=== PATIENT | male | born 1975 | race Caucasian/White ===

== ENCOUNTER → 2025-02-09 | Outpatient (CLI) | payer BC, SELFPAY ==
[2025-02-09 15:35] LABS: Collection Type, Urine Clean Catch; Squamous Epithelial Cell,Urine 0 /hpf (0-5)
[2025-02-09 16:57] LABS: Basophils # (Auto) 0.0 Thou/mm3 (0.0-0.2); Basophils % (Auto) 1 % (0-2.5); Eosinophils # (Auto) 0.1 Thou/mm3 (0.0-0.5); Eosinophils % (Auto) 3 % (0-10); Hematocrit 42.4 % (41.0-53.0); Hemoglobin 14.6 g/dL (13.5-16.0); Immature Granulocytes Auto 0.02 Thou/mm3 (0.00-0.00); Lymphocytes # (Auto) 1.2 Thou/mm3 (1.0-4.8); Lymphocytes % (Auto) 25 % (10-50); Mean Corpuscular HGB Conc 34.4 g/dl (31.0-37.0); Mean Corpuscular Hemoglobin 31.6 pg (25.0-35.0); Mean Corpuscular Volume 92 fL (80-100); Monocytes # (Auto) 0.3 Thou/mm3 (0.0-0.8); Monocytes % (Auto) 6 % (0-12); Neutrophils # (Auto) 3.2 Thou/mm3 (1.8-7.7); Neutrophils % (Auto) 65 % (37-80); Nucleated Red Blood Cell # 0.00 Thou/mm3 (0.00-0.00); Nucleated Red Blood Cell % 0 /100 WBC (0); Platelet Count 240 Thou/mm3 (140-440); RDW Standard Deviation 40.5 fL (35.1-43.9); Red Blood Count 4.62 Miln/mm3 (4.50-5.90); White Blood Count 4.9 Thou/mm3 (3.8-10.6)
[2025-02-09 17:02] LABS: Glucose Estimated Average 94 mg/dL (80-131); Hemoglobin A1C 4.9 % Hgb (4.8-6.0)
[2025-02-09 17:07] LABS: Alanine Aminotransferase 26 U/L (10-49); Albumin, Serum 4.8 gm/dL (3.5-5.0); Alkaline Phosphatase 61 U/L (46-116); Anion Gap 7 (7-16); Aspartate Amino Transferase 29 U/L (0-34); BUN/Creatinine Ratio 9 Ratio (12-20); Blood Urea Nitrogen 9 mg/dL (9-23); Calcium 10.4 mg/dL (8.3-10.6); Calcium (Corrected) 10.4 mg/dL (8.5-10.1); Carbon Dioxide 27.9 mMol/L (20.0-31.0); Cardiac Risk Estimate 5.8 RATIO (4.0-6.7); Chloride 106 mMol/L (98-107); Cholesterol 196 mg/dL (132-200); Creatinine (Component) 1.0 mg/dL (0.6-1.3); Glucose 92 mg/dL (74-106); HDL Cholesterol 34 mg/dL (40-60); LDL Cholesterol,Calculated 142 mg/dL (0-130); Osmolality,Calculated 279 (275-295); Potassium 4.8 mMol/L (3.4-5.1); Prostate Specific Antigen 0.51 ng/mL (0-4.00); Sodium 141 mMol/L (136-145); Triglycerides 102 mg/dL (30-150); Uric Acid 6.5 mg/dL (3.7-9.2); eGFR > 60 See Note
[2025-02-09 17:09] LABS: Albumin/Globulin Ratio 1.8 (1.2-2.2); Bilirubin,Total 1.1 mg/dL (0.3-1.2); Globulin 2.7 gm/dL (2.3-3.5); Thyroid Stimulating Hormone 3.42 uIU/mL (0.55-4.78); Total Protein 7.5 gm/dL (5.7-8.2)
[2025-02-09 17:11] LABS: Vitamin B12 1290 pg/mL (211-911); Vitamin D 25 Hydroxy Total 57.6 ng/mL (7.3-40.2)
[2025-02-09 17:34] LABS: Bilirubin,Urine Negative (Negative); Blood,Urine Negative (Negative); Clarity,Urine Clear (Clear/Hazy); Color,Urine Yellow (Lt Yel-Yel); Glucose, Urine Negative (Negative); Ketones,Urine 1+ (Negative); Leukocyte Esterase,Urine Negative (Negative); Nitrite,Urine Negative (Negative); PH,Urine 5.5 (5.0-7.0); Protein,Urine Negative (Neg - Trace); RBC,Urine 1 /hpf (0-3); Specific Gravity,Urine 1.026 (1.001-1.035); Urobilinogen,Urine Negative mg/dL (0.0-1.0); WBC,Urine < 1 /hpf (0-5)
[2025-02-21 06:26] LABS: Testosterone, Free,Dialysis 51.8 pg/mL (35.0-155.0); Testosterone, Total, Dialysis 276 ng/dL (250-1100)
== END | disposition home or self-care (01) ==
LOC: COPL 15:08
PROVIDERS: PCP Internal Medicine; Referring Provider Internal Medicine; Visit Provider Internal Medicine
DX: Z00.00 Encounter for general adult medical examination without abnormal findings (principal)
CPT/HCPCS: 36415; 80053; 80061; 81001; 82306; 82607; 83036; 84153; 84402; 84403; 84443; 84550; 85025